=== PATIENT | female | born 1980 | race African-American/Black ===

== ENCOUNTER 2020-08-06 09:50 | Emergency (ER) | payer OTHER ==
[~2020-08-06] VITALS: Ht 175.3 cm; Wt 104.3 kg
[2020-08-06] MEDS ORDERED: cloNIDine HCL 0.1 MG TAB ONE (09:53)
[2020-08-06] MEDS ORDERED: cloNIDine HCL 0.1 MG TAB PO ONE (10:00)
[2020-08-06] MEDS ORDERED: KETOROLAC TROMETH 60MG/2ML VIAL IM ONE (11:15)
[2020-08-06] MEDS ORDERED: cefTRIAXone SOD 1,000 MG VL IM ONE (11:15)
[2020-08-06 11:44] VITALS: BP 176/116
== END 2020-08-06 11:56 | disposition home or self-care (01) ==
LOC: ER 09:50
DX: L73.2 Hidradenitis suppurativa (principal); R03.0 Elevated blood-pressure reading, without diagnosis of hypertension
CPT/HCPCS: 96372; 99284; J0696; J1885

== ENCOUNTER 2020-08-07 04:16 | Emergency (ER) | payer OTHER ==
[~2020-08-07] VITALS: Ht 175.3 cm; Wt 108.9 kg
[2020-08-07 05:03] VITALS: BP 164/98
== END 2020-08-07 05:18 | disposition home or self-care (01) ==
LOC: ER 04:16
DX: N61.1 Abscess of the breast and nipple (principal); L73.2 Hidradenitis suppurativa